=== PATIENT | male | born 1980 | race Caucasian/White ===

== ENCOUNTER → 2024-02-14 00:54 | Outpatient (CLI) | payer OTHER, SELFPAY ==
--- NOTE | 2024-02-14 | ETT_ITS ---
APPROVED REPORT Exam: Exercise Treadmill Patient Location: Out-Patient Room/Bed: Stress Nurse: Marvel Rodriguez RN Ordering Provider:GABE JAGDISH, Contact Number: [phone] BMI: 31.92 Baseline Rhythm: Sinus Rhythm Indications: LEFT ARM PAIN Medical History Medical History: HTN, GERD, NSTEMI 2013. Cardiac Medications: LISINOPRIL. Allergies: CODIENE Cardiac Risk Factors: HTN Previous Cardiac Procedures: Myocardial infarction, Pacemaker Pretest Chest Pain Characteristics: No chest pain Exercise History: Indeterminate Lung Sounds: Clear to auscultation Heart Sounds: Regular Stress Test Details Test: Exercise stress testing was performed using a Aly protocol. Rest Stress HR Resting HR Supine: 64 bpm Max Heart Rate (APMHR): 176 bpm Resting HR Standin bpm Target HR (85% APMHR): 150 bpm Max HR Achieved: 150 bpm % of APMHR: 85 Recovery HR: 82 bpm HR response to stress: Normal HR response to stress BP Resting BP Supine: 160/105 mmHg Resting BP Standin/100 mmHg Max BP: 210/96 mmHg Recovery BP: 150/90 mmHg BP response to stress: Normal blood pressure response to stress. ECG Resting ECG: Sinus Rhythm Ectopy: NONE Stress ECG: Sinus Tachycardia ST Change: No significant ST segment changes noted Arrhythmia: None Recovery ECG: Sinus Rhythm Recovery ST Change: No significant ST segment changes noted Recovery Arrhythmia: None Clinical Reason for Termination: Fatigue, Target HR Achieved Stress Symptoms: General Fatigue Exercise duration: 7 min10 sec Highest Stage Reached: Stage 2: 2.5 mph at 12% grade. Exercise capacity: 8.87 METs Angina Score: None Fontenot Treadmill Score: 6.5 Rate Pressure Product: [id number] Stress ECG Conclusion 1. Resting EKG was normal 2. Patient exercised on the Aly protocol and completed a workload of 8.87 METS limited by fatigue 3. Normal heart rate and blood pressure response to exercise. The patient achieved 85% of predicted heart rate for age 4. There was no electrocardiographic evidence of myocardial ischemia 5. There were no dysrhythmias Fontenot Treadmill Score is 6.5 which is Low risk. Stress Test Summary STAGE Time (mins) Speed (mph) Grade (%) HR BP SpO2 SYMPTOMS METS Supine 64 160/105 96 Standing 61 152/100 96 1 3 1.7 10 117 160/80 96 4.5 2 6 2.5 12 130 170/110 93 7 1 min recovery 118 210/96 94 3 min recovery 81 200/90 96 6 min recovery 82 150/90
== END ==
PROVIDERS: Visit Provider Nurse Practitioner Adult Health
DX: M79.622 Pain in left upper arm (principal)
CPT/HCPCS: 93017